=== PATIENT | female | born 1945 | race Caucasian/White ===

== ENCOUNTER 2017-11-27 13:04 | Inpatient (IN) | payer MEDICARE ==
[~2017-11-27] VITALS: Ht 167.6 cm; Wt 59.5 kg
[2017-11-27] VITALS (15 sets, daily range): BP systolic 107–168; BP diastolic 58–78; PULSE 67–80; RESP 16–20; TEMP 98.3–98.6; O2SAT 94–99
[~2017-11-27 13:04] MED LIST: IBUP-238 PO; IMIP10 PO; LORT5TAB PO
[2017-11-27] MEDS ORDERED: SODIUM CHLORIDE 0.9% FLUSH 10 ML FLUSH IVF PRN (13:30)
[2017-11-27] MEDS ORDERED: SODIUM CHLORID 0.9% 500 ML INJ 500 ML IV ONE (13:30)
[2017-11-27] MEDS ORDERED: ASPIRIN 325 MG TAB PO ONE (13:30)
[2017-11-27 13:33] LABS: AUTOMATED NEUTROPHIL # 3.3 TH/MM3 (1.8-7.7); BASOPHIL % 0.6 % (0.0-2.0); EOSINOPHIL # 0.1 TH/MM3 (0-0.4); EOSINOPHIL % 1.4 % (0.0-4.0); HEMOGLOBIN 13.8 GM/DL (11.6-15.3); LYMPHOCYTE # 1.2 TH/MM3 (1.0-4.8); MEAN CELL VOLUME 91.8 FL (80.0-100.0); MEAN CORPUSCULAR HEMOGLOBIN 30.9 PG (27.0-34.0); MEAN CORPUSCULAR HGB CONC 33.7 % (32.0-36.0); MEAN PLATELET VOLUME 10.3 FL (7.0-11.0); MONO % 7.3 % (0.0-8.0); MONOCYTE # 0.4 TH/MM3 (0-0.9); NEUT % 67.7 % (16.0-70.0); PLATELET COUNT 137 TH/MM3 (150-450); RED BLOOD COUNT 4.47 MIL/MM3 (4.00-5.30); RED CELL DISTRIBUTION WIDTH 12.4 % (11.6-17.2)
[2017-11-27 13:45] LABS: CHLORIDE 103 MEQ/L (98-107); SODIUM (NA) 137 MEQ/L (136-145)
[2017-11-27 13:49] LABS: ALBUMIN 3.5 GM/DL (3.4-5.0); BICARBONATE 27.6 MEQ/L (21.0-32.0); BLOOD UREA NITROGEN 14 MG/DL (7-18); CALCIUM 9.6 MG/DL (8.5-10.1); GLUCOSE,RANDOM 108 MG/DL (74-106); MAGNESIUM 1.8 MG/DL (1.5-2.5)
[2017-11-27 13:51] LABS: PROTHROMBIN TIME - PATIENT 10.2 SEC (9.8-11.6)
[2017-11-27 13:52] LABS: ALT (GPT) 22 U/L (10-53); AST (GOT) 21 U/L (15-37); CREATININE 0.78 MG/DL (0.50-1.00); GLOMERULAR FILTRATION RATE 73 ML/MIN (>89)
[2017-11-27 13:54] LABS: D-DIMER 0.44 MG/L FEU (0.00-0.50)
[2017-11-27 13:55] LABS: ALKALINE PHOSPHATASE 87 U/L (45-117)
--- NOTE | 2017-11-27 14:00 | RADRPT ---
EXAM DATE/TIME: 11/27/2017 13:28 [place] COMPARISON: No previous studies available for comparison. INDICATIONS : Chest pain MEDICAL HISTORY : None. SURGICAL HISTORY : None. ENCOUNTER: Initial ACUITY: 3 days PAIN SCORE: 6/10 LOCATION: Bilateral chest FINDINGS: PA and lateral views of the chest demonstrate the lungs to be symmetrically aerated without evidence of mass, infiltrate or effusion. Capsular calcifications present around breast implants. The cardiome diastinal contours are unremarkable. Osseous structures are intact. CONCLUSION: 1. No active disease. Farhad Johnson MD on November 27, 2017 at 13:57 Board Certified Radiologist. This report was verified electronically.
[2017-11-27 14:03] LABS: TROPONIN I 0.63 NG/ML (0.02-0.05)
[2017-11-27] MEDS ORDERED: NITROGLYCERIN 2% OINT 1 GM PACKET TOP ONE (14:15)
[2017-11-27] MEDS ORDERED: MORPHINE SULFATE 4 MG/ML INJ IV PUSH ONE (14:30)
--- NOTE | 2017-11-27 14:41 | PD ---
HPI Chief Complaint: Chest Pain Time Seen by Provider: 13:15 Travel History International Travel<30 days: No Contact w/Intl Traveler<30days: No Traveled to known affect area: No History of Present Illness HPI Patient is a 72-year-old female who complains of chest pain as well as back pain and bilateral arm pain and pain in the anterior neck. Duration of pain has been intermittent although it was first noticed 2 nights prior and again last night. There has been no shortness of breath. Pain was again felt this morning at 7:30 AM. She describes it as a severe stabbing pain. In the ER she describes a mild aching sensation. No cough. She has a history of hyperlipidemia and a family history of coronary artery disease involving the mother. She denies diabetes and hypertension. 2 weeks ago she had some vague dizzy spells however they resolved after just a couple days. No new or different medication. Patient is unsure if there is an exertional component to the pain. PFSH Past Medical History Arthritis: Yes (OSTEOPOROSIS) Depression: Yes High Cholesterol: Yes Immunizations Current: Yes Menopausal: Yes Ovarian Cysts: Yes Past Surgical History Appendectomy: Yes Other Surgery: Yes (BREAST AUGMENTATION) Social History Alcohol Use: Yes (RARE) Tobacco Use: Yes (CIGARETTES, 1 PPD/30 YEARS) Substance Use: No Allergies-Medications (Allergen,Severity, Reaction): Coded Allergies: No Known Allergies (Verified Allergy, Mild, 11/27/17) Reported Meds & Prescriptions Reported Meds & Active Scripts Active Lortab 5/500 (Acetaminophen/Hydrocodone Bitart) 5 Mg/500 Mg Tab 1 Tab PO Q6HPRN FOR PAIN Motrin (Ibuprofen) 800 Mg Tab 800 Mg PO TID Reported Tofranil (Imipramine HCl) 10 Mg Tab 20 Mg PO DAILY Review of Systems Except as stated in HPI: all other systems reviewed are Neg General / Constitutional: No: Fever Physical Exam Narrative GENERAL: 72-year-old female well-nourished well-developed no acute distress Vital Signs Date Time Temp Pulse Resp B/P (MAP) Pulse Ox O2 Delivery O2 Flow Rate FiO2 11/27/17 13:59 67 16 168/62 (97) 98 Room Air 11/27/17 13:20 79 16 97 Room Air 11/27/17 13:18 98.6 79 16 163/68 (99) 97 11/27/17 13:15 16 97 Room Air 11/27/17 13:15 97 Room Air SKIN: Warm and dry. HEAD: Atraumatic. Normocephalic. EYES: Pupils equal and round. No scleral icterus. No injection or drainage. ENT: No nasal bleeding or discharge. Mucous membranes pink and moist. NECK: Trachea midline. No JVD. CARDIOVASCULAR: Regular rate and rhythm. RESPIRATORY: No accessory muscle use. Clear to auscultation. Breath sounds equal bilaterally. GASTROINTESTINAL: Abdomen soft, non-tender, nondistended. Hepatic and splenic margins not palpable. MUSCULOSKELETAL: Extremities without clubbing, cyanosis, or edema. No obvious deformities. NEUROLOGICAL: Awake and alert. No obvious cranial nerve deficits. Motor grossly within normal limits. Five out of 5 muscle strength in the arms and legs. Normal speech. PSYCHIATRIC: Appropriate mood and affect; insight and judgment normal. Data Data Last Documented VS Vital Signs Date Time Temp Pulse Resp B/P (MAP) Pulse Ox O2 Delivery O2 Flow Rate FiO2 11/27/17 13:59 67 16 168/62 (97) 98 Room Air 11/27/17 13:18 98.6 Orders Orders Electrocardiogram (11/27/17 13:21) Ckmb (Isoenzyme) Profile (11/27/17 13:21) Complete Blood Count With Diff (11/27/17 13:21) Comprehensive Metabolic Panel (11/27/17 13:21) D-Dimer (11/27/17 13:21) Magnesium (Mg) (11/27/17 13:21) Prothrombin Time / Inr (Pt) (11/27/17 13:21) Act Partial Throm Time (Ptt) (11/27/17 13:21) Troponin I (11/27/17 13:21) Lipase (11/27/17 13:21) Ecg Monitoring (11/27/17 13:21) Bilateral Bp Monitoring (11/27/17 13:21) Iv Access Insert/Monitor (11/27/17 13:21) Oximetry (11/27/17 13:21) Oxygen Administration (11/27/17 13:21) Aspirin (Aspirin) (11/27/17 13:30) Sodium Chloride 0.9% Flush (Ns Flush) (11/27/17 13:30) Sodium Chlorid 0.9% 500 Ml Inj (Ns 500 M (11/27/17 13:30) Chest, Pa & Lat (11/27/17 13:21) CKMB (11/27/17 13:15) CKMB% (11/27/17 13:15) Nitroglycerin 2% Oint (Nitroglycerin 2% (11/27/17 14:15) Heparin Inj (Heparin Inj) (11/27/17 20:15) Heparin Inj (Heparin Inj) (11/27/17 20:15) Heparin-D5w 25,000 U/250 Ml (Heparin-D5w (11/27/17 15:00) Cbc No Diff, Includes Plts (11/30/17 06:00) Act Partial Throm Time (Ptt) (11/27/17 21:07) Occult Blood (Hemoccult) Stool (11/27/17 14:07) Morphine Inj (Morphine Inj) (11/27/17 14:30) Admit Order (Ed Use Only) (11/27/17 ) Photogeologist / Telemetry SARA.Q8H (11/27/17 14:28) Vital Signs (Adult) Q4H (11/27/17 14:28) Diet Npo (11/27/17 Dinner) Activity Bed Rest (11/27/17 14:28) Admit To Inpatient (11/27/17 ) Vital Signs (Adult) SARA.Q4H (11/27/17 14:30) Activity Bed Rest (11/27/17 14:30) Photogeologist / Telemetry SARA.Q8H (11/27/17 14:30) Resp Oxygen Chad C Titrat 1-4 L (11/27/17 ) Inpatient Certification (11/27/17 ) Labs Laboratory Tests Test 11/27/17 13:15 White Blood Count 5.0 TH/MM3 Red Blood Count 4.47 MIL/MM3 Hemoglobin 13.8 GM/DL Hematocrit 41.0 % Mean Corpuscular Volume 91.8 FL Mean Corpuscular Hemoglobin 30.9 PG Mean Corpuscular Hemoglobin Concent 33.7 % Red Cell Distribution Width 12.4 % Platelet Count 137 TH/MM3 Mean Platelet Volume 10.3 FL Neutrophils (%) (Auto) 67.7 % Lymphocytes (%) (Auto) 23.0 % Monocytes (%) (Auto) 7.3 % Eosinophils (%) (Auto) 1.4 % Basophils (%) (Auto) 0.6 % Neutrophils # (Auto) 3.3 TH/MM3 Lymphocytes # (Auto) 1.2 TH/MM3 Monocytes # (Auto) 0.4 TH/MM3 Eosinophils # (Auto) 0.1 TH/MM3 Basophils # (Auto) 0.0 TH/MM3 CBC Comment DIFF FINAL Differential Comment Prothrombin Time 10.2 SEC Prothromb Time International Ratio 1.0 RATIO Activated Partial Thromboplast Time 28.2 SEC D-Dimer Quantitative (PE/DVT) 0.44 MG/L FEU Blood Urea Nitrogen 14 MG/DL Creatinine 0.78 MG/DL Random Glucose 108 MG/DL Total Protein 7.0 GM/DL Albumin 3.5 GM/DL Calcium Level 9.6 MG/DL Magnesium Level 1.8 MG/DL Alkaline Phosphatase 87 U/L Aspartate Amino Transf (AST/SGOT) 21 U/L Alanine Aminotransferase (ALT/SGPT) 22 U/L Total Bilirubin 1.0 MG/DL Sodium Level 137 MEQ/L Potassium Level 3.7 MEQ/L Chloride Level 103 MEQ/L Carbon Dioxide Level 27.6 MEQ/L Anion Gap 6 MEQ/L Estimat Glomerular Filtration Rate 73 ML/MIN Total Creatine Kinase 130 U/L Creatine Kinase MB 6.7 NG/ML Troponin I 0.63 NG/ML Lipase 311 U/L MDM Medical Decision Making Medical Screen Exam Complete: Yes Emergency Medical Condition: Yes Differential Diagnosis NSTEMI, unstable angina, coronary vasospasm, PE, PTX, aortic dissection, pericarditis, myocarditis, endocarditis, PNA, esophageal disease, aneurysm, musculoskeletal etiologies, anxiety, cocaine/sympathomimetic abuse Narrative Course EKG shows a sinus rhythm with a rate of [address] elevations CBC & BMP Diagram 11/27/17 13:15 Total Protein 7.0, Albumin 3.5, Calcium Level 9.6, Magnesium Level 1.8, Alkaline Phosphatase 87, Aspartate Amino Transf (AST/SGOT) 21, Alanine Aminotransferase (ALT/SGPT) 22, Total Bilirubin 1.0 Troponin 0 0.69 Patient reassessed at approximately 2:15 PM persistent pain reported at that time. Nitro paste ordered as well as morphine. Heparin ordered. d/w Dr Briggs d/w Dr Shepard pt to be admitted to [facility] main, CVICU Critical Care Narrative Aggregate critical care time was 35 minutes. Time to perform other separately billable procedures was not included in the critical care time. My time did not include minutes spent treating any other patients simultaneously or on activities that did not directly contribute to the patient's treatment. The services I provided to this patient were to treat and/or prevent clinically significant deterioration that could result in: cardiac arrest I provided critical care services requiring my management, as noted below: Chart data review, documentation time, medication orders and management, vital sign assessments/reviewing monitor data, ordering and reviewing lab tests, ordering and interpreting/reviewing x-rays and diagnostic studies, care of the patient and discussion of the patient with the admitting physicians. Diagnosis Primary Impression: NSTEMI (non-ST elevated myocardial infarction) Admitting Information Admitting Physician Requests: it Peter Cook MD Nov 27, 2017 14:41
[2017-11-27] MEDS ORDERED: ATORVASTATIN 40 MG TAB PO ONE (15:00)
[2017-11-27] MEDS ORDERED: HEPARIN-D5W 25,000 U/250 ML 250 ML IV SCH (15:00)
--- NOTE | 2017-11-27 15:00 | HHI.HP ---
[facility] Service [place] [facility] Primary Care Physician Alannah Lima MD Admission Diagnosis NSTEMI Diagnoses: Chief Complaint: Chest pain Travel History International Travel<30 Days: No Contact w/Intl Traveler <30 Da: No Traveled to Known Affected Are: No History of Present Illness 72-year-old white female being admitted for N STEMI. Patient was in her usual state of health until about 2 nights ago when she began experiencing sudden onset sharp stabbing chest pain that radiated from her back to the front of her chest to bilateral upper arms when she was doing housework. This self resolved. This occurred again last night and woke her up thus prompting her to come to emergency department. Took some Advil to no avail. Denies having any shortness of breath lightheadedness nausea or vomiting. In the ED most remarkable lab finding was an elevated troponin of 0.6. D-dimer was negative. EKG was unremarkable. Patient was given nitroglycerin with partial relief of the pain. Review of Systems Except as stated in HPI: all other systems reviewed are Neg Past Family Social History Past Medical History Depression, hyperlipidemia Allergies: Coded Allergies: No Known Allergies (Verified Allergy, Mild, 11/27/17) Family History Heart disease in mother Social History Lifelong history of smoking, denies drinking Physical Exam Vital Signs Vital Signs Date Time Temp Pulse Resp B/P (MAP) Pulse Ox O2 Delivery O2 Flow Rate FiO2 11/27/17 13:59 67 16 168/62 (97) 98 Room Air 11/27/17 13:20 79 16 97 Room Air 11/27/17 13:18 98.6 79 16 163/68 (99) 97 11/27/17 13:15 16 97 Room Air 11/27/17 13:15 97 Room Air Physical Exam VS: afebrile GENERAL: Lying in bed, no acute distress, awake, alert SKIN: Warm and dry. EYES: . No scleral icterus. No injection or drainage. ENT: No nasal bleeding or discharge. Mucous membranes pink and moist. CARDIOVASCULAR: Regular rate and rhythm. no murmurs RESPIRATORY: No accessory muscle use. Clear to auscultation. Breath sounds equal bilaterally. GASTROINTESTINAL: Abdomen soft, non-tender, nondistended. Extremities: No clubbing, cyanosis, or edema. No obvious deformities. MUSCULOSKELETAL:adequate muscle bulk and tone for age and habitus; no reproducible CP or back pain to match the description in the history NEUROLOGICAL: Awake and alert. No obvious cranial nerve deficits. No facial droop nor slurred speech noted. PSYCHIATRIC: Appropriate mood and affect; insight and judgment normal. Laboratory Laboratory Tests Test 11/27/17 13:15 White Blood Count 5.0 Red Blood Count 4.47 Hemoglobin 13.8 Hematocrit 41.0 Mean Corpuscular Volume 91.8 Mean Corpuscular Hemoglobin 30.9 Mean Corpuscular Hemoglobin Concent 33.7 Red Cell Distribution Width 12.4 Platelet Count 137 Mean Platelet Volume 10.3 Neutrophils (%) (Auto) 67.7 Lymphocytes (%) (Auto) 23.0 Monocytes (%) (Auto) 7.3 Eosinophils (%) (Auto) 1.4 Basophils (%) (Auto) 0.6 Neutrophils # (Auto) 3.3 Lymphocytes # (Auto) 1.2 Monocytes # (Auto) 0.4 Eosinophils # (Auto) 0.1 Basophils # (Auto) 0.0 CBC Comment DIFF FINAL Differential Comment Prothrombin Time 10.2 Prothromb Time International Ratio 1.0 Activated Partial Thromboplast Time 28.2 D-Dimer Quantitative (PE/DVT) 0.44 Blood Urea Nitrogen 14 Creatinine 0.78 Random Glucose 108 Total Protein 7.0 Albumin 3.5 Calcium Level 9.6 Magnesium Level 1.8 Alkaline Phosphatase 87 Aspartate Amino Transf (AST/SGOT) 21 Alanine Aminotransferase (ALT/SGPT) 22 Total Bilirubin 1.0 Sodium Level 137 Potassium Level 3.7 Chloride Level 103 Carbon Dioxide Level 27.6 Anion Gap 6 Estimat Glomerular Filtration Rate 73 Total Creatine Kinase 130 Creatine Kinase MB 6.7 Troponin I 0.63 Lipase 311 Result Diagram: 11/27/17 1315 11/27/17 1315 Imaging Last Impressions Chest X-Ray 11/27/17 1321 Signed Impressions: Service Date/Time: Monday, November 27, 2017 13:28 - CONCLUSION: 1. No active disease. MD Regine Harris VTE Risk Assessment Caprini VTE Risk Assessment: Mod/High Risk (score >= 2) Caprini Risk Assessment Model Point Value = 1 Point Value = 2 Point Value = 3 Point Value = 5 Age 41-60 Minor surgery BMI > 25 kg/m2 Swollen legs Varicose veins or History of unexplained or recurrent spontaneous Oral contraceptives or hormone replacement Sepsis (< 1 month) Serious lung disease, including pneumonia (< 1 month) Abnormal pulmonary function Acute myocardial infarction Congestive heart failure (< 1 month) History of inflammatory bowel disease Medical patient at bed rest Age 61-74 Arthroscopic surgery Major open surgery (> 45 min) Laparoscopic surgery (> 45 min) Malignancy Confined to bed (> 72 hours) Immobilizing plaster cast Central venous access Age >= 75 History of VTE Family history of VTE Factor V Leiden Prothrombin [id number] Lupus anticoagulant Anticardiolipin antibodies Elevated serum homocysteine Heparin-induced thrombocytopenia Other congenital or acquired thrombophilia Stroke (< 1 month) Elective arthroplasty Hip, pelvis, or leg fracture Acute spinal cord injury (< 1 month) Prophylaxis Regimen Total Risk Factor Score Risk Level Prophylaxis Regimen 0-1 Low Early ambulation 2 Moderate Order ONE of the following: *Sequential Compression Device (SCD) *Heparin 5000 units SQ BID 3-4 Higher Order ONE of the following medications: *Heparin 5000 units SQ TID *Enoxaparin/Lovenox 40 mg SQ daily (WT < 150 kg, CrCl > 30 mL/min) *Enoxaparin/Lovenox 30 mg SQ daily (WT < 150 kg, CrCl > 10-29 mL/min) *Enoxaparin/Lovenox 30 mg SQ BID (WT < 150 kg, CrCl > 30 mL/min) AND/OR *Sequential Compression Device (SCD) 5 or more Highest Order ONE of the following medications: *Heparin 5000 units SQ TID (Preferred with Epidurals) *Enoxaparin/Lovenox 40 mg SQ daily (WT < 150 kg, CrCl > 30 mL/min) *Enoxaparin/Lovenox 30 mg SQ daily (WT < 150 kg, CrCl > 10-29 mL/min) *Enoxaparin/Lovenox 30 mg SQ BID (WT < 150 kg, CrCl > 30 mL/min) AND *Sequential Compression Device (SCD) Assessment and Plan Assessment and Plan 72-year-old white female being admitted for chest pain NSTEMI -Discussed case with ER physician who discussed case with cardiology, will transfer patient to the main hospital. -I independently reviewed the EKG and see no ST segment elevations concerning for ischemia or infarction -Continue heparin drip, given aspirin in the ED -We will give high-intensity statin of Lipitor - telemetry Depression -Hold home imipramine as this is the TCA until acute coronary issue is resolved heparin drip NPO until cleared by cards Physician Certification 2 Midnight Certification Type: Admission for Inpatient Services Order for Inpatient Services The services are ordered in accordance with Medicare regulations or non- Medicare payer requirements, as applicable. In the case of services not specified as inpatient-only, they are appropriately provided as inpatient services in accordance with the 2-midnight benchmark. Estimated LOS (days): 2 2 days is the estimated time the patient will need to remain in the hospital, assuming treatment plan goals are met and no additional complications. Post-Hospital Plan: Not yet determined Joey Briggs MD Nov 27, 2017 15:00
[2017-11-27] MEDS ORDERED: METOPROLOL TARTRATE 25 MG TAB PO ONE (15:30)
[2017-11-27] MEDS ORDERED: HEPARIN SODIUM - IV 10,000 UNITS/10 ML VIAL IV PUSH PRN ×2 (20:15)
[2017-11-28] VITALS (26 sets, daily range): BP systolic 120–142; BP diastolic 54–71; PULSE 66–78; RESP 18; TEMP 98–98.4; O2SAT 94–98
[2017-11-28] MEDS: ASPIRIN 325 MG TAB PO SCH (08:11)
[2017-11-28] MEDS: SODIUM CHLOR 0.9% 1000 ML INJ 1,000 ML IV SCH (09:19)
[2017-11-28] MEDS ORDERED: METOPROLOL TARTRATE 25 MG TAB PO SCH (09:30)
[2017-11-28] MEDS ORDERED: DIAZEPAM 5 MG TAB PO SCH (09:30)
[2017-11-28] MEDS ORDERED: diphenhydrAMINE HCL 25 MG CAP PO SCH (09:30)
[2017-11-28 09:57] LABS: AUTOMATED NEUTROPHIL # 5.6 TH/MM3 (1.8-7.7); BASOPHIL # 0.1 TH/MM3 (0-0.2); BASOPHIL % 0.9 % (0.0-2.0); EOSINOPHIL # 0.1 TH/MM3 (0-0.4); EOSINOPHIL % 1.3 % (0.0-4.0); HEMATOCRIT 38.9 % (35.0-46.0); HEMOGLOBIN 13.4 GM/DL (11.6-15.3); LYMPH % 13.6 % (9.0-44.0); MEAN CELL VOLUME 91.2 FL (80.0-100.0); MEAN CORPUSCULAR HEMOGLOBIN 31.4 PG (27.0-34.0); MEAN CORPUSCULAR HGB CONC 34.4 % (32.0-36.0); MEAN PLATELET VOLUME 10.3 FL (7.0-11.0); MONO % 7.6 % (0.0-8.0); MONOCYTE # 0.6 TH/MM3 (0-0.9); NEUT % 76.6 % (16.0-70.0); PLATELET COUNT 126 TH/MM3 (150-450); RED BLOOD COUNT 4.27 MIL/MM3 (4.00-5.30); RED CELL DISTRIBUTION WIDTH 13.1 % (11.6-17.2); WHITE BLOOD COUNT 7.3 TH/MM3 (4.0-11.0)
[2017-11-28 10:35] LABS: ALBUMIN 3.5 GM/DL (3.4-5.0); AST (GOT) 40 U/L (15-37); BICARBONATE 24.8 MEQ/L (21.0-32.0); BLOOD UREA NITROGEN 11 MG/DL (7-18); CALCIUM 8.8 MG/DL (8.5-10.1); CHLORIDE 106 MEQ/L (98-107); CREATININE 0.61 MG/DL (0.50-1.00); GLOMERULAR FILTRATION RATE 96 ML/MIN (>89); GLUCOSE,RANDOM 100 MG/DL (74-106); SODIUM (NA) 139 MEQ/L (136-145)
[2017-11-28] MEDS ORDERED: HEPARIN-NS/PF FLUSH BAG 2,000 ML IV FLUSH ONE (10:36)
[2017-11-28] MEDS ORDERED: MIDAZOLAM HCL 2 MG/2 ML VIAL ONE (10:36)
[2017-11-28 10:37] LABS: CHOLESTEROL/ HDL RATIO 2.08 RATIO; HDL CHOLESTEROL 80.9 MG/DL (40.0-60.0)
[2017-11-28 10:40] LABS: ALKALINE PHOSPHATASE 78 U/L (45-117); ALT (GPT) 23 U/L (10-53); TOTAL BILIRUBIN ADULT 1.1 MG/DL (0.2-1.0); TOTAL PROTEIN 6.9 GM/DL (6.4-8.2)
[2017-11-28 11:03] LABS: TROPONIN I 2.57 NG/ML (0.02-0.05)
[2017-11-28] MEDS: NITROGLYCERIN 2% OINT 1 GM PACKET TOPICAL SCH ×3 (12:00→23:42)
--- NOTE | 2017-11-28 12:15 | EKG ---
Date Performed: 11/27/2017 Time Performed: 13:11:09 PTAGE: 72 years EKG: Sinus rhythm NORMAL ECG NO PREVIOUS TRACING DOCTOR: Hilario Cash Interpretating Date/Time 11/28/2017 12:13:10
--- NOTE | 2017-11-28 12:16 | CATHPROC ---
[facility] HIS Report Study Information Study Number Admission Scheduled Start Study Start [id number] Nov 27 2017 2:31PM 11/28/2017 Nov 28 2017 10:52AM [facility] Service Cardiac Catheterization Admit Source Facility Department Emergency department [facility] - [facility] Physician and Clinical Staff Initial Robin Antunez Outreach Clinician Suraj Snow RN Outreach Clinician Aby Shannon Recorder Dagmar Orozco,RT(R) (BS) Scrub Lance Boyer RCIS(BS) Procedures Performed Procedure Location (Site) Vessel Name Angiogram LV LV Ventricle Coronary Angiograms LCA Left Coronary Coronary Angiograms RCA Right Coronary L Heart Cath Equipment Time Videotape Recording Engineer Description Size Mfg Part Number Used/Scraped TRANSDUCER, TRUWAVE [id number] 11:08 PHELAN DEAL * Used W/STOCKCOCK *[id number] *[id number] *[id number] PIGTAIL ANG. 145 INFINITI [id number] CATHETER *[id number] 11:50 DAIG/ST. RITESH MEDICAL ANGIOSEAL, FR6 VIP FR 6 Used *[id number] 11:08 [employer] INDUSTRIES PACK, CCL CUSTOM * Used *[id number] 11:08 [employer] PACER PEN, SKIN DUAL W/ RULER * Used *[id number] 11:08 [employer] SHEATH, FR6.5 PRELUDE 11CM FR 6.5 038ACT Used *[id number] 11:08 [employer] WIRE, 3MMJ .035 180CM 180CM Used *[id number] 11:08 NAMIC MANIFOLD, 4 PORT * Used *[id number] 11:08 [employer] OMNIPAQUE, 350 MG, 100ML 100ML [id number] Used [id number] 11:08 [employer] BLANKET,WARM AIR CCL * Used *[id number] History: Current Medications Medication Dosage/Unit Route Frequency Last Date/Time Taken ASA Statins (any) Beta Priscila History: Allergies Allergy Reaction No Known Allergies History: Risk Factors Family History of Hypertension Dyslipidemia Previous [facility] Previous Heart Failure Premature CAD No Yes Yes No No Prior Valve Prior PCI Prior CABG Surgery No No No Cerebrovascular Peripheral Artery Chronic Lung On Dialysis Diabetes Disease Disease Disease No No No No No History: Symptoms/Diagnosis Selection Items Chest pain History: Stress Tests Stress or Imaging Studies Performed No History: Other Current Smoker Method Packs a Day Years Used Pack Years Yes Cigarettes 1 58 58 Labs Hgb (g/dl) Hct (%) WBC (l/cumm) Platelets (thousands) 11.60-17.00 35.00-51.00 4.00-11.00 150.00-450.00 13.8 41 5 137 Glucose (mg/dl) BUN (mg/dl) Creatinine (mg/dl) BUN:Creatinine (1:x) 74.00-106.00 7.00-18.00 0.50-1.30 10.00-20.00 108 14 0.7 20 Na (meq/l) K (meq/l) 136.00-145.00 3.50-5.10 137 3.7 INR (PTT:PT) 0.90-1.10 1 Troponin I (ng/ml) CPK (u/l) CPK-MB (ng/ML) 0.02-0.05 26.00-308.00 0.50-3.60 0.63 130 6.7 Medication Medication Total Dose (Bolus/Oral) Medication Total Dosage/Unit 1% XYLOCAINE 40 mL VERSED 1 mg Medications (Bolus/Oral) Medication Time Given Dosage/Unit Administered By Reason VERSED 11/28/2017 11:32:45 AM 1 mg Aby Shannon 1 mg VERSED given in lab by Aby Shannon in Left Antecubital via Peripheral IV. 1% XYLOCAINE 11/28/2017 11:33:53 AM 20 mL Robin Shepard 20 mL 1% XYLOCAINE given in lab by Robin Shepard in Right Groin via Subcutaneous. 1% XYLOCAINE 11/28/2017 11:37:25 AM 20 mL Robin Shepard 20 mL 1% XYLOCAINE given in lab by Robin Shepard in Right Groin via Subcutaneous. Medication (Drip) Medication Time Given Dosage/Unit Concentration/Unit Diluent (ml) Solution IV Solutions 11/28/2017 11:07:06 AM 50 mL (IV) 1000 NaCl .9 Patient arrived on IV Solutions via Peripheral IV. Pump/Drip Flow using NaCl .9. Initial Case Assessment Cardiovascular HR Rhythm NIBP Chest Pain 66 reg 137/67 0 Edema Present Skin color Skin None Normal Warm Dry Circulatory - Right Pulses Dorsalis Pedis Femoral 3 2 Scale (0,1,2,3,4,d) Circulatory - Left Pulses Dorsalis Pedis Femoral 3 2 Scale (0,1,2,3,4,d) Circulatory - Lower Extremities Color Lower Right Color Lower Left Normal Normal Neurological State Oriented to time-place- Alert Moves all extremities person Respiration - General Respiration Rate SpO2 (%) (B/min) 17 97 Chronological Log Time Study Chronological Log 10:59:53 Patient arrived via Bed. 10:59:54 Patient Name, D.O.B, / Armband Verified By R.N. Vitals capture started with the following parameters, Patient=Adult, Interval=5 min, Initial Tqsweqrd=876 mmHg, 11:06:36 Deflation Rate=5 mmHg, Cuff placed on Left Arm 11:06:38 Consent signed by the physician and the patient and verified by the [facility] staff. 11:06:39 Pre-op and post- op instructions given; patient acknowledges understanding of instruction s. 11:06:40 Verbal Stimulation=2 Physical Stimulation=2 Airway=2 Respiration=2 TOTAL=8. (0=absent, 1= limited, 2=present) 11:06:41 Presedation assessment performed by [facility] RN. 11:06:45 Patient has been NPO for More than 6Hrs. 11:06:55 Patient Warmer Placed on the Table. 11:06:56 Tierney Prominences Protected 11:07:05 A # 20 IV was noted in the Antecubital (left). Grade = 0 11:07:06 Patient arrived on IV Solutions via Peripheral IV. Pump/Drip Flow using NaCl .9. 11:07:07 History and physical on the chart or being dictated. Assessment: Initial Case, HR=66 BPM, Rhythm=reg, YKEL=867/67 mmhg, Chest Pain=0, Edema=None, Co nallely=Normal, Skin = Warm, Dry Right Pulses: Corey Ped=3, Femoral=2 Left Pulses: Corey Ped=3, Femoral=2 11:07:07 Lower Right Extremities: Color=Normal Lower Left Extremities: Color=Normal Neurological: State=Alert, Ox3, [place] Respiration: Resp=17 B/min, SpO2=97 % 11:07:45 HR=65 bpm, ZKPX=576/67 mmhg, SpO2=98.0 %, Resp=14 B/min, Pain=0, Liliana=10, Padron=2 11:12:15 HR=65 bpm, QCNY=814/65 mmhg, SpO2=97.0 %, Resp=26 B/min, Pain=0, Liliana=10, Padron=2 11:14:07 Bilateral groins prepped with 2% chlorhexidine, and draped after a 3 minute waiting time. 11:17:01 MD paged 11:17:14 HR=66 bpm, DWVP=360/62 mmhg, SpO2=96.0 %, Resp=18 B/min, Pain=0, Liliana=10, Padron=2 11:18:06 Reference ECG taken 11:18:45 Pressure channel 1 zeroed. 11:22:13 HR=65 bpm, LEPL=129/67 mmhg, SpO2=95.0 %, Resp=24 B/min, Pain=0, Liliana=10, Padron=2 11:27:10 MD arrived 11:27:12 HR=68 bpm, TKYR=406/64 mmhg, SpO2=94.0 %, Resp=18 B/min, Pain=0, Liliana=10, Padron=2 11:32:15 HR=68 bpm, VTML=143/65 mmhg, SpO2=95.0 %, Resp=21 B/min, Pain=0, Liliana=10, Padron=2 11:32:45 1 mg VERSED given in lab by Aby Shannon in Left Antecubital via Peripheral IV. Time Out. Correct patient, correct procedure, correct physician, power injector not loaded with contrast with surgical 11:32:55 team present. Time Out Concurred by MD and individual staff in procedure. 11:33:02 Case Start 11:33:53 20 mL 1% XYLOCAINE given in lab by Robin Shepard in Right Groin via Subcutaneous. 11:37:16 HR=67 bpm, AXNK=786/64 mmhg, SpO2=94.0 %, Resp=21 B/min, Pain=0, Liliana=10, Padron=2 11:37:25 20 mL 1% XYLOCAINE given in lab by Robin Shepard in Right Groin via Subcutaneous. 11:38:25 Access site was Right Femoral Artery. 11:38:31 A SHEATH, FR6.5 PRELUDE 11CM FR 6.5 was advanced into the Fem Art (right) using the Percuta neous technique. A PIGTAIL ANG. 145 INFINITI CATHETER FR 6 was advanced over a wire. OMNIPAQUE, 350 MG, 100ML 10 0ML was 11:39:30 used for injections. Recorded Pressure: LV, HR=67, Condition=Condition 1 11:40:26 (Left Ventricle) LV 149/3/10 11:41:23 The LV was injected at 8 cc/sec for a total of 30. OMNIPAQUE, 350 MG, 100ML 100ML used. Recorded Pressure: LV, Ao, HR=71, Condition=Condition 1 11:42:13 (Left Ventricle) LV 134/4/12, (Aorta) Ao 144/59/94 11:42:17 HR=70 bpm, CRWY=271/59 mmhg, SpO2=95.0 %, Resp=21 B/min, Pain=0, Liliana=10, Padron=2 11:42:31 Catheter was removed A JL 4.0 INFINITI CATHETER FR 6 was advanced over a wire. OMNIPAQUE, 350 MG, 100ML 100ML was us ed for 11:42:32 injections. Recorded Pressure: Ao, HR=70, Condition=Condition 1 11:43:40 (Aorta) Ao 146/59/95 11:43:55 The LCA was injected and visualized at various angles. OMNIPAQUE, 350 MG, 100ML 100ML used . 11:46:04 Catheter was removed A 3DRC INFINITI CATHETER FR 6 was advanced over a wire. OMNIPAQUE, 350 MG, 100ML 100ML was use d for 11:46:06 injections. 11:46:51 The RCA was injected and visualized at various angles. OMNIPAQUE, 350 MG, 100ML 100ML use d. 11:47:55 HR=68 bpm, GYPX=235/50 mmhg, SpO2=96.0 %, Resp=18 B/min, Pain=0, Liliana=10, Padron=2 11:49:37 An injection in the Fem Art (right) was made through the SHEATH, FR6.5 PRELUDE 11CM FR 6.5 . 11:50:02 ANGIOSEAL, FR6 VIP FR 6 placement in the Fem Art (right) 11:52:17 HR=72 bpm, EHDS=873/70 mmhg, SpO2=93.0 %, Resp=25 B/min, Pain=0, Liliana=10, Padron=2 11:52:34 Case End 11:53:11 Catheter(s) removed without difficulty 11:53:31 No case complications noted. 11:53:34 Bedside Report will be given. 11:53:35 Implantable Device card placed in patient's chart. 11:53:37 A Left Heart Cath was performed. 11:54:55 CIC called. Spoke to Mayela. End Study - Contrast Media Used In Study Contrast Total Opened (mL) Total Used (mL) Total Wasted (mL) Omnipaque 60 60 0 End Study - Maximum Contrast Load Max Contrast Load (mL) 437.0 End Study - Radiation Exposure Fluoro Time (minutes) 1.9 End Study - Sheaths Sheaths Pulled By Sheath Hold Time (min) Robin Shepard End Study - Patient Disposition Complications Transferred To Interventional Outcome No Telemetry Bed No attempt made
[2017-11-28] MEDS ORDERED: SODIUM CHLOR 0.9% 1000 ML INJ 1,000 ML IV SCH (12:19)
[2017-11-28] MEDS ORDERED: MISC INFORMATION XX ONE (12:30)
[2017-11-28] MEDS ORDERED: SODIUM CHLORIDE 0.9% FLUSH 10 ML FLUSH IV FLUSH PRN (12:30)
[2017-11-28] MEDS ORDERED: BACITRACIN OINT 0.9 GM PKT TOP ONE (12:30)
[2017-11-28] MEDS ORDERED: ONDANSETRON HCL 4 MG/2 ML VIAL IV PUSH PRN (12:30)
--- NOTE | 2017-11-28 12:37 | MA ---
cc: Robin Shepard MD DATE: 11/28/2017 PROCEDURE PERFORMED: Left heart catheterization, left ventriculography, coronary angiography. DESCRIPTION OF PROCEDURE: The patient was brought to the cardiac catheterization lab in a fasting state. She received 1 mg of Versed for additional sedation. Using 1% lidocaine for local anesthesia, a 6.5 Swedish sheath was inserted in the right femoral artery. Left ventricular pressure was then recorded using a pigtail catheter, followed by left ventriculography and then a pullback. Coronary angiography was then completed using a left 4 and 3 DRC catheter. Angiography was then obtained of the right femoral artery via the sheath, followed by uncomplicated Angio-Seal placement. There were no complications. FINDINGS: 1. Hemodynamics: Left ventricular pressure is 134/4 with an end diastolic pressure of 12. Aortic pressure is 146/59 with a mean of 95. 2. Left ventriculography shows a symmetrically kasandra left ventricle with an estimated ejection fraction of 70%. 3. Coronary angiography: Left main coronary artery appears normal. It bifurcates into the LAD and circumflex vessels. Both vessels are of good caliber. The left anterior descending artery appears normally. Distally, it is extremely tortuous and small, but there is no stenosis seen. There is maybe a 5% degree of mid irregularity. Circumflex artery gives off a small tortuous marginal branch and a large posterolateral branch. There is diffuse 5% irregularities in the distal circumflex vessel. The right coronary artery is dominant. This is also a good caliber vessel, but 5-10% mid irregularities and irregularities of the PDA branch. There were no high grade stenoses seen anywhere. CONCLUSIONS: 1. Normal hemodynamics. 2. Normal left ventricular function. 3. Minor nonobstructive coronary disease. The overall clinical picture is therefore more suggestive of spasm. Beta elsi I think is contraindicated in this scenario even though it is an infarct, I am going to place her on diltiazem and nitrate therapy. Lipids are being assessed and we will probably add statin therapy. Anticipate discharge possibly as early as tomorrow. MD YT Barrera/JACKIE , 12:18 PM , 12:37 PM
--- NOTE | 2017-11-28 14:38 | HHI.PR ---
Subjective Remarks Patient seen after heart catheterization. She complains of back pain and a headache. No more chest pain or shortness of breath. Objective Vitals Vital Signs Date Time Temp Pulse Resp B/P (MAP) Pulse Ox O2 Delivery O2 Flow Rate FiO2 11/28/17 12:01 69 11/28/17 11:01 98.0 69 18 129/68 (88) 96 11/28/17 10:00 76 11/28/17 09:00 72 11/28/17 08:56 94 21 11/28/17 08:15 95 Room Air 11/28/17 08:15 98.0 77 18 131/65 (87) 95 11/28/17 08:00 78 11/28/17 07:01 75 11/28/17 06:00 72 11/28/17 05:00 69 11/28/17 04:00 Room Air 11/28/17 04:00 98.4 70 18 134/71 (92) 98 11/28/17 04:00 70 11/28/17 03:00 71 11/28/17 02:00 74 11/28/17 01:00 72 11/28/17 00:00 69 11/28/17 00:00 98.2 69 18 120/54 (76) 96 11/27/17 23:00 71 11/27/17 22:00 68 11/27/17 21:12 98 21 11/27/17 21:00 70 11/27/17 20:00 98.3 73 20 107/58 (74) 97 11/27/17 20:00 73 11/27/17 19:40 77 16 127/69 (88) 99 11/27/17 18:48 73 16 137/75 (95) 94 11/27/17 17:30 72 16 153/71 (98) 96 Room Air 11/27/17 16:45 80 16 148/76 (100) 96 Room Air 11/27/17 16:00 76 16 161/78 (105) 97 Room Air 11/27/17 15:45 98 21 11/27/17 15:25 16 11/27/17 15:00 79 16 167/68 (101) 98 Room Air I/O 3/31/18 3/31/18 3/31/18 4/1/18 4/1/18 4/1/18 07:00 15:00 23:00 07:00 15:00 23:00 Intake Total 500 ml 720 ml Output Total 600 ml Balance 500 ml 120 ml Intake IV Total 500 ml 720 ml Output Urine Total 600 ml # Bowel Movements 0 Result Diagram: 11/28/1793411/28/17934 Objective Remarks GENERAL: This is a well-nourished, well-developed patient, in no apparent distress. CARDIOVASCULAR: Normal rate and regular rhythm without murmurs, gallops, or rubs. RESPIRATORY: Good respiratory efforts. Breath sounds equal and clear to auscultation bilaterally. GASTROINTESTINAL: Abdomen soft, non-tender, non-distended. Normal active bowel sounds MUSCULOSKELETAL: Extremities without cyanosis, or edema. NEURO: Alert & Oriented x4 to person, place, time, situation. Moves all ext x4 PSYCH: Appropriate mood and affect. Procedures Heart cath A/P Assessment and Plan 72-year-old white female admitted for chest pain. NSTEMI -Cardiology following. Status post heart catheterization. Minor nonobstructive coronary artery disease. Cardiology suggesting spasm as the etiology. Patient started on diltiazem and nitrate therapy. - Follow-up lipids -Continue high-intensity statin of Lipitor - telemetry Depression -Resume home medications. Back pain: Ibuprofen as needed. Max for severe pain as needed. Discharge Planning Probable discharge tomorrow morning if stable. Vj Pettit MD Nov 28, 2017 14:38
[2017-11-28] MEDS ORDERED: ACETAMINOPHEN/HYDROcodone 325 MG/5 MG TAB PO PRN (14:45)
[2017-11-28] MEDS: IBUPROFEN 600 MG TAB PO PRN (14:57)
[2017-11-28] MEDS: DILTIAZEM HCL 60 MG TAB PO SCH ×3 (15:01→23:41)
[2017-11-28] MEDS: SODIUM CHLORIDE 0.9% FLUSH 10 ML FLUSH IV FLUSH SCH (20:43)
[2017-11-28] MEDS ORDERED: ATORVASTATIN 40 MG TAB PO SCH (21:00)
[2017-11-29] VITALS (9 sets, daily range): BP systolic 115–134; BP diastolic 55–70; PULSE 60–81; RESP 18; TEMP 97.7–98.4; O2SAT 96–97
[2017-11-29] MEDS: SODIUM CHLOR 0.9% 1000 ML INJ 1,000 ML IV SCH (05:12)
[2017-11-29] MEDS: NITROGLYCERIN 2% OINT 1 GM PACKET TOPICAL SCH (05:12)
[2017-11-29] MEDS: DILTIAZEM HCL 60 MG TAB PO SCH (05:12)
[2017-11-29] MEDS ORDERED: NITROGLYCERIN 0.4 MG SL 25 TABS/BTL SL PRN (07:45)
--- NOTE | 2017-11-29 07:45 | PD.CARD.PN ---
Subjective Subjective Remarks No angina. No complaints Objective Medications Current Medications Medications (Trade) Dose Ordered Sig/Brant Route Start Time Stop Time Status Last Admin (NS Flush) 2 ml UNSCH PRN IVF 11/27/17 13:30 (Aspirin) 325 mg DAILY PO 11/28/17 09:00 11/28/17 08:11 (Lipitor) 40 mg HS PO 11/28/17 21:00 11/28/17 20:43 Sodium Chloride 1,000 ml @ 100 mls/hr Q10H IV 11/28/17 09:19 12/03/17 09:18 11/28/17 09:19 (Benadryl) 25 mg JOURNALISM INSTRUCTOR PO 11/28/17 09:30 12/02/17 09:29 (Valium) 5 mg JOURNALISM INSTRUCTOR PO 11/28/17 09:30 12/02/17 09:29 (NS Flush) 2 ml BID IV FLUSH 11/28/17 21:00 11/28/17 20:43 (NS Flush) 2 ml UNSCH PRN IV FLUSH 11/28/17 12:30 (Zofran Inj) 4 mg Q4H PRN IV PUSH 11/28/17 12:30 (Motrin) 600 mg Q8H PRN PO 11/28/17 14:45 11/28/17 14:57 (Mobile 5-325 Mg) 1 tab Q4H PRN PO 11/28/17 14:45 11/28/17 14:56 (Tofranil) 25 mg DAILY PO 11/29/17 09:00 Vital Signs / I&O Vital Signs Date Time Temp Pulse Resp B/P (MAP) Pulse Ox O2 Delivery O2 Flow Rate FiO2 11/29/17 06:00 70 11/29/17 05:00 98.4 60 18 134/70 (91) 97 11/29/17 05:00 67 11/29/17 04:00 Room Air 11/29/17 04:00 60 11/29/17 03:00 63 11/29/17 02:00 65 11/29/17 01:00 62 11/29/17 00:00 98.1 61 18 115/55 (75) 96 11/29/17 00:00 Room Air 11/29/17 00:00 61 11/28/17 23:00 70 11/28/17 22:00 71 11/28/17 21:00 70 11/28/17 20:34 21 11/28/17 20:00 68 11/28/17 20:00 98.3 68 18 138/66 (90) 97 11/28/17 20:00 Room Air 11/28/17 18:01 66 11/28/17 17:00 68 11/28/17 16:01 68 11/28/17 15:01 98.0 70 18 142/70 (94) 95 11/28/17 15:00 74 11/28/17 14:00 68 11/28/17 13:00 72 11/28/17 12:01 69 11/28/17 11:01 98.0 69 18 129/68 (88) 96 11/28/17 10:00 76 11/28/17 09:00 72 11/28/17 08:56 94 21 11/28/17 08:15 95 Room Air 11/28/17 08:15 98.0 77 18 131/65 (87) 95 11/28/17 08:00 78 I/O 11/28/17 11/28/17 11/28/17 11/29/17 11/29/17 11/29/17 07:00 15:00 23:00 07:00 15:00 23:00 Intake Total 720 ml 960 ml 480 ml Output Total 600 ml Balance 120 ml 960 ml 480 ml Intake Oral 960 ml 480 ml IV Total 720 ml Output Urine Total 600 ml # Voids 3 3 # Bowel Movements 0 0 0 Physical Exam GENERAL: Well developed, well nourished. No acute distress. HEENT: Jugular venous pressure is normal. CHEST: Lungs clear to auscultation bilaterally. Unlabored respiratory effort. CARDIAC: Regular rate and rhythm without S3, S4, or murmur. ABDOMEN: Soft, nontender, no hepatosplenomegaly. Bowel sounds present. EXTREMITIES: No clubbing, cyanosis, or edema. Right groin OK. Laboratory Laboratory Tests Test 11/28/17 09:35 White Blood Count 7.3 TH/MM3 Red Blood Count 4.27 MIL/MM3 Hemoglobin 13.4 GM/DL Hematocrit 38.9 % Mean Corpuscular Volume 91.2 FL Mean Corpuscular Hemoglobin 31.4 PG Mean Corpuscular Hemoglobin Concent 34.4 % Red Cell Distribution Width 13.1 % Platelet Count 126 TH/MM3 Mean Platelet Volume 10.3 FL Neutrophils (%) (Auto) 76.6 % Lymphocytes (%) (Auto) 13.6 % Monocytes (%) (Auto) 7.6 % Eosinophils (%) (Auto) 1.3 % Basophils (%) (Auto) 0.9 % Neutrophils # (Auto) 5.6 TH/MM3 Lymphocytes # (Auto) 1.0 TH/MM3 Monocytes # (Auto) 0.6 TH/MM3 Eosinophils # (Auto) 0.1 TH/MM3 Basophils # (Auto) 0.1 TH/MM3 CBC Comment DIFF FINAL Differential Comment Blood Urea Nitrogen 11 MG/DL Creatinine 0.61 MG/DL Random Glucose 100 MG/DL Total Protein 6.9 GM/DL Albumin 3.5 GM/DL Calcium Level 8.8 MG/DL Alkaline Phosphatase 78 U/L Aspartate Amino Transf (AST/SGOT) 40 U/L Alanine Aminotransferase (ALT/SGPT) 23 U/L Total Bilirubin 1.1 MG/DL Sodium Level 139 MEQ/L Potassium Level 3.7 MEQ/L Chloride Level 106 MEQ/L Carbon Dioxide Level 24.8 MEQ/L Anion Gap 8 MEQ/L Estimat Glomerular Filtration Rate 96 ML/MIN Total Creatine Kinase 161 U/L Troponin I 2.57 NG/ML Triglycerides Level 102 MG/DL Cholesterol Level 169 MG/DL LDL Cholesterol 68 MG/DL HDL Cholesterol 80.9 MG/DL Cholesterol/HDL Ratio 2.08 RATIO Assessment and Plan Problem List: (1) Tobacco use ICD Codes: Z72.0 - Tobacco use Plan: Counseled (2) Coronary artery spasm ICD Codes: I20.1 - Angina pectoris with documented spasm Plan: continue Diltiazem and nitrates. No beta elsi (contrindicated/ can worsen spasm) (3) Coronary artery disease ICD Codes: I25.10 - Atherosclerotic heart disease of [place] coronary artery without angina pectoris Plan: Minimal disease (irregularities 5-10%) (4) NSTEMI (non-ST elevated myocardial infarction) ICD Codes: I21.4 - Non-ST elevation (NSTEMI) myocardial infarction Status: Acute Code Status OK to [facility] Robin Shepard MD Nov 29, 2017 07:45
[2017-11-29] MEDS ORDERED: IOHEXOL 350 MG/ML 100 ML BTL (for Cath Lab) OTHER ONE (07:59)
[2017-11-29] MEDS: ASPIRIN 325 MG TAB PO SCH (08:41)
[2017-11-29] MEDS: IBUPROFEN 600 MG TAB PO PRN (08:41)
[2017-11-29] MEDS: SODIUM CHLORIDE 0.9% FLUSH 10 ML FLUSH IV FLUSH SCH (08:41)
[2017-11-29] MEDS ORDERED: ATOR40TA16 PO (08:46)
[2017-11-29] MEDS ORDERED: NITR0.4S SL (08:46)
[2017-11-29] MEDS ORDERED: DILT240C44 PO (08:46)
[2017-11-29] MEDS ORDERED: ISOS30TA3 PO (08:46)
[2017-11-29] MEDS ORDERED: ECASA81 PO (08:46)
--- NOTE | 2017-11-29 08:47 | HHI.DS ---
Discharge Summary Admission Date Nov 27, 2017 at 14:31 Discharge Date: Nov 29, 2017 Admitting Diagnosis NSTEMI (1) Coronary artery disease ICD Code: I25.10 - Atherosclerotic heart disease of [place] coronary artery without angina pectoris (2) Coronary artery spasm ICD Code: I20.1 - Angina pectoris with documented spasm Procedures Heart cath Brief History - From Admission HPI from the admitting physician 72-year-old white female being admitted for N STEMI. Patient was in her usual state of health until about 2 nights ago when she began experiencing sudden onset sharp stabbing chest pain that radiated from her back to the front of her chest to bilateral upper arms when she was doing housework. This self resolved. This occurred again last night and woke her up thus prompting her to come to emergency department. Took some Advil to no avail. Denies having any shortness of breath lightheadedness nausea or vomiting. In the ED most remarkable lab finding was an elevated troponin of 0.6. D-dimer was negative. EKG was unremarkable. Patient was given nitroglycerin with partial relief of the pain. CBC/BMP: 11/28/17 0935 11/28/17 0935 Significant Findings Laboratory Tests Test 11/27/17 13:15 11/27/17 21:29 11/28/17 03:25 11/28/17 09:35 Platelet Count 137 TH/MM3 (150-450) 126 TH/MM3 (150-450) Random Glucose 108 MG/DL (74-106) Estimat Glomerular Filtration Rate 73 ML/MIN (>89) Creatine Kinase MB 6.7 NG/ML (0.5-3.6) Troponin I 0.63 NG/ML (0.02-0.05) 2.57 NG/ML (0.02-0.05) Activated Partial Thromboplast Time 46.0 SEC (24.3-30.1) 45.4 SEC (24.3-30.1) Neutrophils (%) (Auto) 76.6 % (16.0-70.0) Aspartate Amino Transf (AST/SGOT) 40 U/L (15-37) Total Bilirubin 1.1 MG/DL (0.2-1.0) HDL Cholesterol 80.9 MG/DL (40.0-60.0) Imaging Last Impressions Chest X-Ray 11/27/17 1321 Signed Impressions: Service Date/Time: Wednesday, November 27, 2017 13:28 - CONCLUSION: 1. No active disease. Farhad Johnson MD PE at Discharge GENERAL: This is a well-nourished, well-developed patient, in no apparent distress. CARDIOVASCULAR: Normal rate and regular rhythm without murmurs, gallops, or rubs. RESPIRATORY: Good respiratory efforts. Breath sounds equal and clear to auscultation bilaterally. GASTROINTESTINAL: Abdomen soft, non-tender, non-distended. Normal active bowel sounds MUSCULOSKELETAL: Extremities without cyanosis, or edema. NEURO: Alert & Oriented x4 to person, place, time, situation. Moves all ext x4 PSYCH: Appropriate mood and affect. Pt update on day of discharge Patient reports she is feeling great. She denies any chest pain or shortness of breath. Eager to go home. Hospital Course 72-year-old white female admitted for chest pain. Evaluation and treatment course detailed below: NSTEMI: Troponin elevated -Cardiology following. Status post heart catheterization. Minor nonobstructive coronary artery disease. Cardiology suggesting spasm as the etiology. Patient started on diltiazem and nitrate therapy. -Continue on aspirin and statin. - Beta-elsi contraindicated in coronary artery spasm. Depression -Continue home medications. Back pain: Ibuprofen as needed. [place] for severe pain as needed. Pt Condition on Discharge: Good Discharge Disposition: Discharge Home Discharge Time: <= 30 minutes Discharge Instructions DIET: Follow Instructions for: Heart Healthy Diet Activities you can perform: Regular-No Restrictions New Medications: Aspirin DR (Aspirin DR) 81 Mg Tabdr 81 MG PO DAILY, #30 TAB Atorvastatin (Atorvastatin) 40 Mg Tab 10 MG PO DAILY, #30 TAB Diltiazem CD 24 HR (Diltiazem CD 24 HR) 240 Mg Caper 240 MG PO DAILY, #30 CAP Isosorbide Mononitrate ER (Isosorbide Mononitrate ER) 30 Mg Marbin 15 MG PO DAILY@07, #30 TAB Nitroglycerin SL (Nitrostat SL) 0.4 Mg Subl 0.4 MG SL Q5M PRN for CHEST PAIN, #10 TAB Continued Medications: Hydrocodone-Acetaminophen (Lortab 5/500) 5 Mg/500 Mg Tab 1 TAB PO Q6HPRN, #20 0 Refills FOR PAIN Ibuprofen (Motrin) 800 Mg Tab 800 MG PO TID, #30 0 Refills Imipramine Hcl (Tofranil) 10 Mg Tab 20 MG PO DAILY, 0 Refills Vj Pettit MD Nov 29, 2017 08:47
[2017-11-29] MEDS ORDERED: IMIPRAMINE HCL 25 MG TAB PO SCH (09:00)
[2017-11-29] MEDS ORDERED: PILL SPLITTER OTHER PRN (09:00)
[2017-11-29] MEDS ORDERED: ATORVASTATIN 10 MG TAB PO SCH (09:00)
[2017-11-29] MEDS ORDERED: DILTIAZEM-CD 240 MG CAP ER PO SCH (09:00)
--- NOTE | 2017-11-29 09:12 | EKG ---
Date Performed: 11/28/2017 Time Performed: 09:53:48 PTAGE: 72 years EKG: Sinus arrhythmia. rSr'(V1) - probable normal variant Septal T wave changes are nonspecific Borderline ECG PREVIOUS TRACING : 11/27/2017 13.11 Since the previous tracing, no significant change noted DOCTOR: Andrew Yoder Interpretating Date/Time 11/29/2017 09:11:19
[2017-11-30] MEDS ORDERED: ISOSORBIDE MONONITRATE 30 MG CR TAB (IMDUR) PO SCH (07:00)
[2017-11-30] MEDS ORDERED: ASPIRIN EC 81 MG TABEC PO SCH (09:00)
== END 2017-11-29 09:49 | disposition home or self-care (01) | DRG 287 ==
LOC: PHED 13:04 → PHEDA 14:31 → HCIS 20:18
PROVIDERS: ADMIT Family Medicine; ATTEND Family Medicine
PROC: 4A023N7 Measurement of Cardiac Sampling and Pressure, Left Heart, Percutaneous Approach (ICD-10-PCS; principal; 2017-11-28)
PROC: B2111ZZ Fluoroscopy of Multiple Coronary Arteries using Low Osmolar Contrast (ICD-10-PCS; 2017-11-28)
PROC: B2151ZZ Fluoroscopy of Left Heart using Low Osmolar Contrast (ICD-10-PCS; 2017-11-28)
DX: I25.111 Atherosclerotic heart disease of native coronary artery with angina pectoris with documented spasm (principal); E78.5 Hyperlipidemia, unspecified; M81.0 Age-related osteoporosis without current pathological fracture; M19.90 Unspecified osteoarthritis, unspecified site; M54.9 Dorsalgia, unspecified; F32.9 Major depressive disorder, single episode, unspecified; Z72.0 Tobacco use; Z82.49 Family history of ischemic heart disease and other diseases of the circulatory system
CPT/HCPCS: 71046; 80053; 80061; 82550; 82552; 83690; 83735; 84484; 85025; 85379; 85610; 85730; 93005; 93458; 96360; 99152; C1760; C1769; C1893; G0269; J1644; J2250; J2270; J7030; J7040; Q9967